=== PATIENT | female | born 1970 | race Caucasian/White ===

== ENCOUNTER 2017-02-10 21:19 | Emergency (ER) | payer OTHER ==
[~2017-02-10] VITALS: Ht 167.6 cm; Wt 58.7 kg
[~2017-02-10 21:19] MED LIST: Z.0.NO CURRENT MEDS
[2017-02-10 21:24] VITALS: BP 166/87; PULSE 102; RESP 18; TEMP 98.1; O2SAT 100
[2017-02-10] MEDS ORDERED: ALPR.25 PO (21:44)
--- NOTE | 2017-02-10 21:50 | PD ---
HPI Chief Complaint: Anxiety Time Seen by Provider: 21:37 Travel History International Travel<30 days: No Contact w/Intl Traveler<30days: No Traveled to known affect area: No History of Present Illness HPI The patient is a 46-year-old female that complains of anxiety for about a week intermittently. She felt palpitations and Dr. Martel data 24-hour Holter monitor which showed only occasional PVCs. She called Dr. Wheeler's office and he called in a prescription for Xanax 0.25 mg and Zoloft. She has not taken this medication yet. She comes in the emergency department because of anxiety and because she feels fullness in her head and thinks it might be her sinuses. She wants sinus studies done. She does have a nasal discharge which is occasionally yellow. She does not smoke. PFSH Past Medical History Diminished Hearing: No Immunizations Current: Yes : 3 Para: 2 Miscarriage: 0 : 0 Ectopic : No Past Surgical History Section: No Social History Alcohol Use: No Tobacco Use: No Substance Use: No Allergies-Medications (Allergen,Severity, Reaction): Coded Allergies: No Known Allergies (Verified , 02/10/17) Reported Meds & Prescriptions Reported Meds & Active Scripts Active Reported Xanax (Alprazolam) 0.25 Mg Tab 0.25 Mg PO Q8H PRN No Current Meds (Miscellaneous Medication) Misc Review of Systems Except as stated in HPI: all other systems reviewed are Neg Physical Exam Narrative GENERAL: The patient appears anxious but is alert, oriented 3 and otherwise no apparent distress. Her vital signs show heart rate of 102 and blood pressure 166/87 but otherwise normal. SKIN: Focused skin assessment warm/dry. HEAD: Atraumatic. Normocephalic. EYES: Pupils equal and round. No scleral icterus. No injection or drainage. ENT: No nasal bleeding or discharge. Mucous membranes pink and moist. The throat is clear. NECK: Trachea midline. No JVD. CARDIOVASCULAR: Regular rate and rhythm. No murmur appreciated. RESPIRATORY: No accessory muscle use. Clear to auscultation. Breath sounds equal bilaterally. GASTROINTESTINAL: Abdomen soft, non-tender, nondistended. Hepatic and splenic margins not palpable. MUSCULOSKELETAL: No obvious deformities. No clubbing. No cyanosis. No edema. NEUROLOGICAL: Awake and alert. No obvious cranial nerve deficits. Motor grossly within normal limits. Normal speech. PSYCHIATRIC: The patient does appear anxious; insight and judgment normal. Data Data Last Documented VS Vital Signs Date Time Temp Pulse Resp B/P (MAP) Pulse Ox O2 Delivery O2 Flow Rate FiO2 02/10/17 22:42 99 17 118/80 (93) 100 Room Air 02/10/17 21:[address] Sinuses W/O Iv Contrast (02/10/17 ) Ed Urine Pregnancytest Poc (02/10/17 22:28) Alprazolam (Xanax) (02/10/17 22:30) MDM Medical Decision Making Medical Screen Exam Complete: Yes Emergency Medical Condition: Yes Medical Record Reviewed: Yes Interpretation(s) The CT sinuses is normal. Differential Diagnosis Anxiety, depression, cardiac dysrhythmia-highly unlikely, anxiety/ hyperventilation, acute sinusitis, chronic sinusitis Narrative Course The patient appears to have anxiety/hyperventilation. She was hyperventilating mildly when she was here. She has been worked up for palpitations with a 24- hour Holter monitor which showed nothing but occasional PVCs. There is no evidence for sinusitis. Plan: The patient will take the medications as prescribed by her primary care physician and follow-up with her primary care physician. She is given a 4 day work excuse. Diagnosis Primary Impression: Anxiety hyperventilation Additional Instructions: Follow-up with Dr. Wheeler. Take the medicine that Dr. Wheeler gave you. Med/Other Pt SpecificInfo: No Change to Meds Disposition: 01 DISCHARGE HOME Condition: Stable Albaro Bridges MD Feb 10, 2017 21:50
[2017-02-10] MEDS ORDERED: ALPRAZolam 0.5 MG TAB PO ONE (22:30)
[2017-02-10 22:42] VITALS: BP 118/80; PULSE 99; RESP 17; O2SAT 100
--- NOTE | 2017-02-10 23:15 | RADRPT ---
EXAM DATE/TIME: 02/10/2017 22:51 [facility] COMPARISON: No previous studies available for comparison. INDICATIONS : Frontal headache and fullness feeling. RADIATION DOSE: 24.63 CTDIvol (mGy) MEDICAL HISTORY : None SURGICAL HISTORY : None. ENCOUNTER: Initial ACUITY: 1 day PAIN SCORE: 4/10 LOCATION: frontal TECHNIQUE: Volumetric scanning of the paranasal sinuses was performed. Using automated exposure control and adj ustment of the mA and/or kV according to patient size, radiation dose was kept as low as reasonably a chievable to obtain optimal diagnostic quality images. DICOM format image data is available electro nically for review and comparison. FINDINGS: MAXILLARY SINUSES: Normal. No significant mucosal thickening or fluid. Infundibula are patent. No anomalous inferior orbital ethmoid (Mil) air cells. ETHMOID SINUSES: Normal. No significant mucosal thickening or fluid. Fovea ethmoidal and lamina papyracea are symmet danny and intact. SPHENOID SINUSES: Normal. No significant mucosal thickening or fluid. Sphenoethmoidal recesses are patent. No bony d ehiscence. FRONTAL SINUSES: Normal. No significant mucosal thickening or fluid. Frontal recesses are patent. No anomalous fron luis air cells. NASAL FOSSA: Normal. No septal perforation or deviation. No maldonado bullosa or paradoxical turbinates are identifie d. OTHER: Normal. Limited views of the skull base and orbits are unremarkable. CONCLUSION: Negative. Clear sinuses. Rivera Mayer MD on February 10, 2017 at 23:13 Board Certified Radiologist. This report was verified electronically.
== END 2017-02-10 23:54 | disposition home or self-care (01) ==
LOC: PHED 21:19
DX: F41.9 Anxiety disorder, unspecified (principal)
CPT/HCPCS: 70486; 84703; 99284

== ENCOUNTER 2017-05-29 08:48 | Emergency (ER) | payer OTHER ==
[~2017-05-29] VITALS: Ht 167.6 cm; Wt 58.0 kg
[~2017-05-29 08:48] MED LIST changes: +ALPR.25 PO
[2017-05-29 08:50] VITALS: BP 164/103; PULSE 113; RESP 26; TEMP 98.3; O2SAT 100
[2017-05-29] MEDS ORDERED: SODIUM CHLOR 0.9% 1000 ML INJ 1,000 ML IV ONE (09:00)
[2017-05-29] MEDS ORDERED: LORazepam 2 MG/ML VIAL IV PUSH ONE (09:00)
[2017-05-29 09:16] LABS: AUTOMATED NEUTROPHIL # 3.7 TH/MM3 (1.8-7.7); BASOPHIL % 0.7 % (0.0-2.0); EOSINOPHIL # 0.1 TH/MM3 (0-0.4); EOSINOPHIL % 1.4 % (0.0-4.0); HEMATOCRIT 41.9 % (35.0-46.0); HEMOGLOBIN 14.9 GM/DL (11.6-15.3); LYMPH % 34.2 % (9.0-44.0); LYMPHOCYTE # 2.2 TH/MM3 (1.0-4.8); MEAN CORPUSCULAR HEMOGLOBIN 34.1 PG (27.0-34.0); MEAN CORPUSCULAR HGB CONC 35.5 % (32.0-36.0); MEAN PLATELET VOLUME 9.3 FL (7.0-11.0); MONO % 7.9 % (0.0-8.0); MONOCYTE # 0.5 TH/MM3 (0-0.9); NEUT % 55.8 % (16.0-70.0); PLATELET COUNT 215 TH/MM3 (150-450); RED BLOOD COUNT 4.36 MIL/MM3 (4.00-5.30); RED CELL DISTRIBUTION WIDTH 12.1 % (11.6-17.2); WHITE BLOOD COUNT 6.6 TH/MM3 (4.0-11.0)
--- NOTE | 2017-05-29 09:19 | RADRPT ---
EXAM DATE/TIME: 05/29/2017 08:58 [facility] COMPARISON: No previous studies available for comparison. INDICATIONS : Short of breath. MEDICAL HISTORY : Tachycardia. SURGICAL HISTORY : None. ENCOUNTER: Initial ACUITY: 1 day PAIN SCORE: 0/10 LOCATION: Bilateral chest FINDINGS: A single view of the chest demonstrates the lungs to be symmetrically aerated without evidence of mas s, infiltrate or effusion. The cardiomediastinal contours are unremarkable. Osseous structures are intact. CONCLUSION: Negative for acute process. Arun Choi MD FACR on May 29, 2017 at 9:17 Board Certified Radiologist. This report was verified electronically.
[2017-05-29 09:30] VITALS: BP 113/73; PULSE 103; O2SAT 100
[2017-05-29 09:38] LABS: ALBUMIN 4.1 GM/DL (3.4-5.0); AST (GOT) 17 U/L (15-37); BICARBONATE 24.4 MEQ/L (21.0-32.0); BLOOD UREA NITROGEN 12 MG/DL (7-18); CALCIUM 9.3 MG/DL (8.5-10.1); CHLORIDE 104 MEQ/L (98-107); GLOMERULAR FILTRATION RATE 67 ML/MIN (>89); GLUCOSE,RANDOM 113 MG/DL (74-106); SODIUM (NA) 137 MEQ/L (136-145)
[2017-05-29 09:39] LABS: ALT (GPT) 16 U/L (10-53)
[2017-05-29 09:41] LABS: ALKALINE PHOSPHATASE 66 U/L (45-117); TOTAL BILIRUBIN ADULT 0.5 MG/DL (0.2-1.0); TOTAL PROTEIN 7.7 GM/DL (6.4-8.2)
--- NOTE | 2017-05-29 10:07 | PD ---
HPI Chief Complaint: Cardiac Complaint Time Seen by Provider: 08:52 Travel History International Travel<30 days: No Contact w/Intl Traveler<30days: No Traveled to known affect area: No History of Present Illness HPI So 46 year-old woman who presents emergency department complaining of palpitations and rapid heart rate. 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 Symptoms came on abruptly, lasts a few minutes, are gradually resolving. No associated symptoms. No aggravating or exacerbating symptoms. Patient is wearing some sort of herbal stimulant patch. History Past Medical History Narrative Medical Anxiety LMP: 05/24/17 : 3 Para: 2 Social History Alcohol Use: Yes Tobacco Use: No Allergies-Medications (Allergen,Severity, Reaction): Coded Allergies: No Known Allergies (Verified Adverse Reaction, Unknown, 05/29/17) Reported Meds & Prescriptions Reported Meds & Active Scripts Active Reported Xanax (Alprazolam) 0.25 Mg Tab 0.25 Mg PO Q8H PRN No Current Meds (Miscellaneous Medication) Misc Review of Systems Except as stated in HPI: all other systems reviewed are Neg Physical Exam Narrative GENERAL: 46 year-old woman, anxious, no acute distress. SKIN: Focused skin assessment warm/dry. HEAD: Atraumatic. Normocephalic. EYES: Pupils equal and round. No scleral icterus. No injection or drainage. ENT: No nasal bleeding or discharge. Mucous membranes pink and moist. NECK: Trachea midline. No JVD. CARDIOVASCULAR: Heart rate rapid, regular. No murmurs. RESPIRATORY: No accessory muscle use. Clear to auscultation. Breath sounds equal bilaterally. GASTROINTESTINAL: Abdomen soft, non-tender, nondistended. Hepatic and splenic margins not palpable. MUSCULOSKELETAL: No obvious deformities. No clubbing. No cyanosis. No edema. NEUROLOGICAL: Awake and alert. No obvious cranial nerve deficits. Motor grossly within normal limits. Normal speech. PSYCHIATRIC: Appropriate mood and affect; insight and judgment normal. Data Data Last Documented VS Vital Signs Date Time Temp Pulse Resp B/P (MAP) Pulse Ox O2 Delivery O2 Flow Rate FiO2 05/29/17 09:30 103 113/73 (86) 100 Room Air 05/29/17 08:54 24 05/29/17 08:50 98.3 Orders Orders Complete Blood Count With Diff (05/29/17 08:52) Comprehensive Metabolic Panel (05/29/17 08:52) Iv Access Insert/Monitor (05/29/17 08:52) D-Dimer (05/29/17 08:52) Chest, Single Ap (05/29/17 ) Electrocardiogram (05/29/17 ) Sodium Chlor 0.9% 1000 Ml Inj (Ns 1000 M (05/29/17 09:00) Lorazepam Inj (Ativan Inj) (05/29/17 09:00) Labs Laboratory Tests Test 05/29/17 09:05 White Blood Count 6.6 TH/MM3 Red Blood Count 4.36 MIL/MM3 Hemoglobin 14.9 GM/DL Hematocrit 41.9 % Mean Corpuscular Volume 96.0 FL Mean Corpuscular Hemoglobin 34.1 PG Mean Corpuscular Hemoglobin Concent 35.5 % Red Cell Distribution Width 12.1 % Platelet Count 215 TH/MM3 Mean Platelet Volume 9.3 FL Neutrophils (%) (Auto) 55.8 % Lymphocytes (%) (Auto) 34.2 % Monocytes (%) (Auto) 7.9 % Eosinophils (%) (Auto) 1.4 % Basophils (%) (Auto) 0.7 % Neutrophils # (Auto) 3.7 TH/MM3 Lymphocytes # (Auto) 2.2 TH/MM3 Monocytes # (Auto) 0.5 TH/MM3 Eosinophils # (Auto) 0.1 TH/MM3 Basophils # (Auto) 0.0 TH/MM3 CBC Comment DIFF FINAL Differential Comment D-Dimer Quantitative (PE/DVT) LESS THAN 0.19 MG/L FEU Blood Urea Nitrogen 12 MG/DL Creatinine 0.90 MG/DL Random Glucose 113 MG/DL Total Protein 7.7 GM/DL Albumin 4.1 GM/DL Calcium Level 9.3 MG/DL Alkaline Phosphatase 66 U/L Aspartate Amino Transf (AST/SGOT) 17 U/L Alanine Aminotransferase (ALT/SGPT) 16 U/L Total Bilirubin 0.5 MG/DL Sodium Level 137 MEQ/L Potassium Level 3.7 MEQ/L Chloride Level 104 MEQ/L Carbon Dioxide Level 24.4 MEQ/L Anion Gap 9 MEQ/L Estimat Glomerular Filtration Rate 67 ML/MIN MDM Medical Decision Making Medical Screen Exam Complete: Yes Emergency Medical Condition: Yes Interpretation(s) My review of EKG: Sinus tachycardia rate of 119, normal axis, short KS interval at 100, no definite evidence of acute ischemia. No definite delta waves. LABS: CBC is unremarkable. CMP is unremarkable. D-dimer negative. Chest x-ray negative. Differential Diagnosis Arrhythmia, palpitations, SVT, A. fib, WPW, anxiety, other Narrative Course Medical decision-making new para 46 year-old woman, palpitations and rapid heart rate. Reportedly measured upstairs at 228. Normal sinus rhythm in the 120s, resolving. Suspect arrhythmia. Urine fall sure but no clear delta waves or other evidence of definite WPW. She's been seen by Dr. Martel in the past. She looks well now and her sinus tachycardia is resolving. Recommend close outpatient follow-up. Low risk for PE. D-dimer negative. Diagnosis Primary Impression: Palpitations Additional Impression: Tachycardia Additional Instructions: Drink plenty of fluids. Avoid stimulants. Follow-up with Dr. Martel. Return to the emergency department for any chest pain, palpitations, passing out , or any other new or worsening symptoms. Med/Other Pt SpecificInfo: No Change to Meds Disposition: 01 DISCHARGE HOME Condition: Stable Arcenio Dias MD May 29, 2017 10:06
--- NOTE | 2017-05-30 13:38 | EKG ---
Date Performed: 05/29/2017 Time Performed: 08:51:11 PTAGE: 46 years EKG: SINUS TACHYCARDIA WITH SHORT NV INTERVAL ABNORMAL RHYTHM ECG NO PREVIOUS TRACING DOCTOR: Omar Gomez Interpretating Date/Time 05/30/2017 13:37:20
== END 2017-05-29 11:12 | disposition home or self-care (01) ==
LOC: NEPE 08:48
DX: R00.2 Palpitations (principal); R00.0 Tachycardia, unspecified; F41.9 Anxiety disorder, unspecified; R94.31 Abnormal electrocardiogram [ECG] [EKG]
CPT/HCPCS: 71010; 80053; 85025; 85379; 93005; 99285; J2060; J7030

== ENCOUNTER → 2017-09-24 | Outpatient (CLI) | payer OTHER ==
[2017-09-24 08:51] LABS: AUTOMATED NEUTROPHIL # 3.1 TH/MM3 (1.8-7.7); BASOPHIL % 0.6 % (0.0-2.0); EOSINOPHIL # 0.1 TH/MM3 (0-0.4); EOSINOPHIL % 1.6 % (0.0-4.0); HEMATOCRIT 41.1 % (35.0-46.0); HEMOGLOBIN 14.3 GM/DL (11.6-15.3); LYMPH % 27.6 % (9.0-44.0); LYMPHOCYTE # 1.4 TH/MM3 (1.0-4.8); MEAN CELL VOLUME 96.7 FL (80.0-100.0); MEAN CORPUSCULAR HEMOGLOBIN 33.7 PG (27.0-34.0); MEAN CORPUSCULAR HGB CONC 34.9 % (32.0-36.0); MEAN PLATELET VOLUME 8.8 FL (7.0-11.0); MONO % 7.8 % (0.0-8.0); MONOCYTE # 0.4 TH/MM3 (0-0.9); NEUT % 62.4 % (16.0-70.0); PLATELET COUNT 188 TH/MM3 (150-450); RED BLOOD COUNT 4.25 MIL/MM3 (4.00-5.30); RED CELL DISTRIBUTION WIDTH 11.8 % (11.6-17.2); WHITE BLOOD COUNT 4.9 TH/MM3 (4.0-11.0)
[2017-09-24 09:19] LABS: ALBUMIN 3.9 GM/DL (3.4-5.0); AST (GOT) 13 U/L (15-37); BICARBONATE 26.5 MEQ/L (21.0-32.0); BLOOD UREA NITROGEN 8 MG/DL (7-18); CALCIUM 8.9 MG/DL (8.5-10.1); CHLORIDE 107 MEQ/L (98-107); CREATININE 0.74 MG/DL (0.50-1.00); GLOMERULAR FILTRATION RATE 84 ML/MIN (>89); GLUCOSE,FASTING 85 MG/DL (74-99); SODIUM (NA) 140 MEQ/L (136-145)
[2017-09-24 09:20] LABS: ALT (GPT) 14 U/L (10-53); CHOLESTEROL 156 MG/DL (120-200); TRIGLYCERIDES 62 MG/DL (42-150)
[2017-09-24 09:44] LABS: ALKALINE PHOSPHATASE 57 U/L (45-117); CHOLESTEROL/ HDL RATIO 2.22 RATIO; FREE T4 0.85 NG/DL (0.76-1.46); HDL CHOLESTEROL 70.1 MG/DL (40.0-60.0); LDL CHOLESTEROL 74 MG/DL (0-99); TOTAL BILIRUBIN ADULT 0.6 MG/DL (0.2-1.0); TOTAL PROTEIN 7.3 GM/DL (6.4-8.2)
== END ==
LOC: CLAB 08:25
PROVIDERS: ATTEND Family Medicine
DX: I47.1 Supraventricular tachycardia (principal); R42 Dizziness and giddiness; R00.2 Palpitations
CPT/HCPCS: 36415; 80053; 80061; 82607; 84439; 84443; 84480; 85025